=== PATIENT | male | born 1985 | race Caucasian/White ===

== ENCOUNTER 2018-05-07 17:58 | Emergency (ER) | payer OTHER ==
[2018-05-07] MEDS ORDERED: NA CHLORIDE 0.9% 1,000 ML ONE (18:52)
[2018-05-07] MEDS ORDERED: ONDANSETRON 4 MG/2 ML VIAL ONE (18:52)
[2018-05-07] MEDS ORDERED: FAMOTIDINE 20 MG/2 ML VIAL IV ONE (18:53)
[2018-05-07 19:07] LABS: Absolute Lymphocytes (CBC) 2.2 K/uL (0.7-4.9); Absolute Monocytes 0.6 K/uL (0.1-1.3); Absolute Neutrophil 3.4 K/uL (1.8-8.0); Basophils % 0.7 % (0-1.3); Eosinophils % 1.1 % (0-4.4); Hematocrit 46.9 % (39.6-49.0); Lymphocytes % 34.8 % (15.3-44.8); MPV 8.5 fL (7.6-11.3); Monocytes % 9.8 % (3.3-12.3); RBC Red Blood Cell Count 5.39 M/uL (4.33-5.43)
[2018-05-07 19:20] LABS: Albumin 4.3 g/dL (3.4-5.0); Bilirubin Direct 0.2 mg/dL (0-0.2); Bilirubin Total 0.8 mg/dL (0.2-1.0); Potassium 4.2 mmol/L (3.5-5.1); Protein, Total 7.8 g/dL (6.4-8.2)
--- NOTE | 2018-05-07 19:35 | RAD REPORT ---
EXAM DESCRIPTION: US - Abdomen Exam Limited - 05/07/2018 7:04 pm CLINICAL HISTORY: epigastric/RUQ abdomen pain COMPARISON: No comparisons FINDINGS: The gallbladder demonstrates very small stones dependently. No pericholecystic fluid or ga llbladder wall thickening. The common bile duct is normal measuring 6 mm. The liver demonstrates no findings of intrahepatic biliary dilatation. IMPRESSION: Very small gallstones are suspected layering dependently in the gallbladder.
--- NOTE | 2018-05-07 19:46 | ER ---
Nurse's Notes [facility] Name: Christopher Rodríguez Age: 32 yrs Sex: Male : 1985 Arrival Date: 05/07/2018 Time: 18:01 Bed 24 Private MD: Diagnosis: Cholelithiasis Presentation: 05/07 18:26 Presenting complaint: Patient states: "ABDOMINAL PAIN STARTED TWO MONTHS AGO, AND THEN rv CAME BACK TWO WEEKS AGO. WENT TO THE DOCTOR AND WAS PRESCRIBED WITH MEDICINE FOR ACID REFLUX. HE WAS SCHEDULED FOR ULTRASOUND BUT THE PAIN GOT WORSE TODAY AT WORK. COMPLAINS OF NAUSEA. NO VOMITING OR DIARRHEA.". Transition of care: patient was not received from another setting of care. Onset of symptoms was May 07, 2018 at 15:00. Risk Assessment: Do you want to hurt yourself or someone else? Patient reports no desire to harm self or others. Initial Sepsis Screen: Does the patient meet any 2 criteria? No. Patient's initial sepsis screen is negative. Does the patient have a suspected source of infection? No. Patient's initial sepsis screen is negative. Care prior to arrival: None. 18:26 Method Of Arrival: Ambulatory rv 18:26 Acuity: JAJA 3 rv Triage Assessment: 18:30 General: Appears in no apparent distress. comfortable, Behavior is calm, appropriate rv for age. Pain: Complains of pain in abdomen. EENT: No signs and/or symptoms were reported regarding the EENT system. Neuro: Level of Consciousness is awake, alert, obeys commands, Oriented to person, place, time, situation. Cardiovascular: Capillary refill < 3 seconds. Respiratory: Airway is patent. GI: Abdomen is round Reports nausea. : No signs and/or symptoms were reported regarding the genitourinary system. Derm: Skin is intact. Musculoskeletal: No signs and/or symptoms reported regarding the musculoskeletal system. Historical: - Allergies: 18:29 No Known Allergies; rv - Home Meds: 18:29 None [Active]; rv - PMHx: 18:29 None; rv - PSHx: 18:29 None; rv - Immunization history:: Adult Immunizations not immunized. - Social history:: Smoking status: Patient/guardian denies using tobacco. - Ebola Screening: : Patient negative for fever greater than or equal to 101.5 degrees Fahrenheit, and additional compatible Ebola Virus Disease symptoms Patient denies exposure to infectious person Patient denies travel to an Ebola-affected area in the 21 days before illness onset. Screenin:31 Abuse screen: Denies threats or abuse. Denies injuries from another. Nutritional rv screening: No deficits noted. Tuberculosis screening: No symptoms or risk factors identified. Fall Risk None identified. Assessment: 18:32 GI: Bowel sounds present X 4 quads. Abd is soft and non tender. rv 19:46 Reassessment: Patient appears in no apparent distress at this time. Patient and/or rv family updated on plan of care and expected duration. Pain level reassessed. Patient is alert, oriented x 3, equal unlabored respirations, skin warm/dry/pink. Vital Signs: 18:31 BP 137 / 83; Pulse 90; Resp 18; Temp 98.4(O); Pulse Ox 100% on R/A; Weight 120.2 kg (R);rv 19:00 BP 118 / 81 LA; Pulse 78; Resp 18 S; Pulse Ox 97% on R/A; rv 19:30 BP 128 / 92 LA; Pulse 71; Resp 17 S; Pulse Ox 98% on R/A; rv ED Course: 18:01 Patient arrived in ED. mr 18:21 Zachery Queen PA is PHCP. cp 18:21 Jt Hancock MD is Attending Physician. cp 18:29 Triage completed. rv 18:31 Arm band placed on left wrist. rv 18:31 Patient has correct armband on for positive identification. Bed in low position. Call rv light in reach. Side rails up X 1. Pulse ox on. NIBP on. 18:40 Patient taken to ultrasound. imtiaz 18:52 Inserted saline lock: 20 gauge in right antecubital area, using aseptic technique. lt1 18:53 Initial lab(s) drawn, by me, sent to lab. lt1 19:04 US Abdomen Limited In Process Unspecified. EDMS 19:07 Patient moved back from ultrasound. imtiaz 19:45 Hardeep Cuello MD is Referral Physician. cp 19:58 No provider procedures requiring assistance completed. IV discontinued, bleeding rv controlled, No redness/swelling at site. Pressure dressing applied. Administered Medications: 18:45 Drug: Zofran 4 mg Route: IVP; Site: right antecubital; rv 19:44 Follow up: Response: Nausea is decreased rv 18:45 Drug: NS 0.9% 1000 ml Route: IV; Rate: 1 bolus; Site: right antecubital; rv 19:44 Follow up: IV Status: Completed infusion rv 18:50 Drug: Pepcid 20 mg Route: IVP; Site: right antecubital; rv 19:44 Follow up: Response: Pain is decreased rv 19:44 Drug: GI Cocktail without - (Maalox Suspension 30 ml, Lidocaine Liquid 2 % 15 rv ml) Route: PO; 19:59 Follow up: Response: Medication administered at discharge. rv Outcome: 19:45 Discharge ordered by MD. cp 19:58 Discharged to home ambulatory. rv 19:58 Condition: good 19:58 Discharge instructions given to patient, Instructed on discharge instructions, follow up and referral plans. medication usage, Demonstrated understanding of instructions, follow-up care, medications, Prescriptions given X 2. 19:59 Patient left the ED. rv Signatures: Dispatcher [employer] EDOK Kimberly Live Corey, PA PA cp Dupre, Jacques jd Vicente, Ronaldo, RN RN rv Jyoti Becerra lt1
--- NOTE | 2018-05-07 19:46 | EDPHYS ---
Physician Documentation [facility] Name: Christopher Rodríguez Age: 32 yrs Sex: Male : 1985 Arrival Date: 05/07/2018 Time: 18:01 Bed 24 Private MD: ED Physician Jt Hancock HPI: 05/07 18:45 This 32 yrs old Male presents to ER via Ambulatory with complaints of cp Abdominal Pain. 18:45 The patient presents with abdominal pain in the epigastric area, in the right upper cp quadrant. 18:45 Onset: The symptoms/episode began/occurred 2 month(s) ago. The symptoms do not radiate. cp Associated signs and symptoms: Pertinent positives: nausea and vomiting, Pertinent negatives: anorexia, blood in stools, chest pain, constipation, diarrhea, fever, shortness of breath, testicular pain. The symptoms are described as intermittent. Modifying factors: the symptoms are aggravated by food. Severity of pain: in the emergency department the pain is actually worse moderately. Historical: - Allergies: 18:29 No Known Allergies; rv - Home Meds: 18:29 None [Active]; rv - PMHx: 18:29 None; rv - PSHx: 18:29 None; rv - Immunization history:: Adult Immunizations not immunized. - Social history:: Smoking status: Patient/guardian denies using tobacco. - Ebola Screening: : Patient negative for fever greater than or equal to 101.5 degrees Fahrenheit, and additional compatible Ebola Virus Disease symptoms Patient denies exposure to infectious person Patient denies travel to an Ebola-affected area in the 21 days before illness onset. ROS: 18:50 Constitutional: Negative for body aches, chills, fever, poor PO intake. cp 18:50 Eyes: Negative for injury, pain, redness, and discharge. cp 18:50 ENT: Negative for drainage from ear(s), ear pain, sore throat, difficulty swallowing, difficulty handling secretions. 18:50 Cardiovascular: Negative for chest pain, edema, palpitations. 18:50 Respiratory: Negative for cough, shortness of breath, wheezing. 18:50 Abdomen/GI: Positive for abdominal pain, nausea and vomiting, Negative for diarrhea, constipation, anorexia, black/tarry stool, rectal bleeding. 18:50 Back: Negative for radiated pain. 18:50 : Negative for urinary symptoms, testicular pain 18:50 Skin: Negative for cellulitis, rash. 18:50 Neuro: Negative for altered mental status, headache, weakness. 18:50 All other systems are negative. Exam: 18:55 Constitutional: The patient appears in no acute distress, alert, awake, non-toxic, well cp developed, well nourished. 18:55 Head/Face: Normocephalic, atraumatic. cp 18:55 Eyes: Periorbital structures: appear normal, Conjunctiva: normal, no exudate, no injection, Sclera: no appreciated abnormality, Lids and lashes: appear normal, bilaterally. 18:55 ENT: External ear(s): are unremarkable, Ear canal(s): are normal, clear, TM's: bulging, is not appreciated, bilaterally, dullness, bilaterally, erythema, is not appreciated, bilaterally, Nose: is normal, Mouth: Lips: moist, Oral mucosa: pink and intact, moist, Posterior pharynx: is normal, airway is patent, no erythema, no exudate. 18:55 Neck: ROM/movement: is normal, is supple, without pain, no range of motions limitations, no nuchal rigidity. 18:55 Chest/axilla: Inspection: normal, Palpation: is normal, no crepitus, no tenderness. 18:55 Cardiovascular: Rate: normal, Rhythm: regular. 18:55 Respiratory: the patient does not display signs of respiratory distress, Respirations: normal, no use of accessory muscles, no retractions, no splinting, no tachypnea, labored breathing, is not present, Breath sounds: are clear throughout, no decreased breath sounds, no stridor, no wheezing. 18:55 Abdomen/GI: Inspection: abdomen appears normal, Bowel sounds: active, all quadrants, Palpation: soft, in all quadrants, mild abdominal tenderness, in the epigastric area and right upper quadrant, rebound tenderness, is not appreciated, involuntary guarding, is not appreciated. 18:55 Back: pain, is absent, ROM is normal. 18:55 Skin: cellulitis, is not appreciated, no rash present. Vital Signs: 18:31 BP 137 / 83; Pulse 90; Resp 18; Temp 98.4(O); Pulse Ox 100% on R/A; Weight 120.2 kg (R);rv 19:00 BP 118 / 81 LA; Pulse 78; Resp 18 S; Pulse Ox 97% on R/A; rv 19:30 BP 128 / 92 LA; Pulse 71; Resp 17 S; Pulse Ox 98% on R/A; rv MDM: 18:21 Patient medically screened. cp 19:00 Differential diagnosis: appendicitis, bowel obstruction, cholecystitis, Cholelithiasis, cp diverticulitis, gastritis, gastroesophageal reflux disease, GI Bleed, non-specific abd pain, pancreatitis, Peptic Ulcer Disease, Perf. Duodenal Ulcer, Perf. Gastric Ulcer. 19:45 Data reviewed: vital signs, nurses notes, lab test result(s), radiologic studies, cp ultrasound. 19:45 Counseling: I had a detailed discussion with the patient and/or guardian regarding: the cp historical points, exam findings, and any diagnostic results supporting the discharge/admit diagnosis, lab results, radiology results, the need for outpatient follow up, a general surgeon, to return to the emergency department if symptoms worsen or persist or if there are any questions or concerns that arise at home. Response to treatment: the patient's symptoms have markedly improved after treatment, and as a result, I will discharge patient. ED course: VSS. Discussed results of labs and US showing gallstones. Pain improved, will discharge to home and refer to general surgery. 05/07 18:35 Order name: Basic Metabolic Panel; Complete Time: 19:27 cp 03/04 19:27 Interpretation: Normal except: GFR 87. cp /04 18:35 Order name: CBC with Diff; Complete Time: 19:27 cp /04 18:35 Order name: Creatinine for Radiology; Complete Time: 19:27 cp /04 18:35 Order name: Hepatic Function; Complete Time: 19:27 cp /04 18:35 Order name: Lipase; Complete Time: 19:27 cp /04 18:35 Order name: US Abdomen Limited; Complete Time: 19:37 cp /04 18:35 Order name: IV Saline Lock; Complete Time: 18:53 cp 03/04 18:35 Order name: Labs collected and sent; Complete Time: 18:53 cp Administered Medications: 18:45 Drug: Zofran 4 mg Route: IVP; Site: right antecubital; rv 19:44 Follow up: Response: Nausea is decreased rv 18:45 Drug: NS 0.9% 1000 ml Route: IV; Rate: 1 bolus; Site: right antecubital; rv 19:44 Follow up: IV Status: Completed infusion rv 18:50 Drug: Pepcid 20 mg Route: IVP; Site: right antecubital; rv 19:44 Follow up: Response: Pain is decreased rv 19:44 Drug: GI Cocktail without - (Maalox Suspension 30 ml, Lidocaine Liquid 2 % 15 rv ml) Route: PO; 19:59 Follow up: Response: Medication administered at discharge. rv Disposition: 05/07/18 19:45 Discharged to Home. Impression: Cholelithiasis. - Condition is Stable. - Discharge Instructions: Biliary Colic, Adult, Cholelithiasis. - Prescriptions for Bentyl 20 mg Oral Tablet - take 2 tablet by ORAL route every 6 hours As needed; 40 tablet. Zofran 4 mg Oral Tablet - take 1 tablet by ORAL route every 12 hours As needed; 20 tablet. - Medication Reconciliation Form, Thank You Letter, Antibiotic Education, Prescription Opioid Use, Work release form, Family Work Release form. - Follow up: Hardeep Cuello MD; When: 1 - 2 days; Reason: Recheck today's complaints. - Problem is new. - Symptoms have improved. Signatures: Dispatcher [employer] EDMS Zachery Queen PA PA cp Gerardo Glover RN RN rv Corrections: (The following items were deleted from the chart) 19:59 19:45 05/07/2018 19:45 Discharged to Home. Impression: Cholelithiasis. Condition is rv Stable. Forms are Medication Reconciliation Form, Thank You Letter, Antibiotic Education, Prescription Opioid Use. Follow up: Hardeep Cuello; When: 1 - 2 days; Reason: Recheck today's complaints. Problem is new. Symptoms have improved. cp
[2018-05-07] MEDS ORDERED: LIDOCAINE VISCOUS 2% SOLN 15 ML UDC ONE (19:49)
[2018-05-07] MEDS ORDERED: MAGNE/ALUM HYDROXD 30 ML UCUP ONE (19:49)
== END 2018-05-07 19:59 | disposition home or self-care (01) ==
LOC: ER 17:58
DX: K80.20 Calculus of gallbladder without cholecystitis without obstruction (principal)
CPT/HCPCS: 36415; 76705; 80048; 80076; 83690; 85025; 96361; 96374; 96375; 99284; J2405; J7030

== ENCOUNTER 2018-05-11 20:19 | Day surgery (SDC) | payer OTHER ==
[2018-05-11] MEDS ORDERED: ONDANSETRON 4 MG/2 ML VIAL IV PRN (21:57)
[2018-05-11] MEDS ORDERED: MORPHINE 2 MG/ML SYR IV PRN (21:57)
[2018-05-11] MEDS ORDERED: NA CHLORIDE 0.9% 1,000 ML IV SCH (22:00)
[2018-05-11] MEDS ORDERED: PIPER/TAZO/NS 3.375gm 6.750 GM/200 ML BAG ONE (23:38)
[2018-05-11] MEDS: PIPER/TAZO/NS 3.375gm 3.375 GM/100 ML BAG IVPB SCH (23:59)
[2018-05-12] MEDS: PIPER/TAZO/NS 3.375gm 3.375 GM/100 ML BAG IVPB SCH (05:21)
[2018-05-12] MEDS ORDERED: PIPER/TAZO/NS 3.375gm 3.375 GM/100 ML BAG IVPB SCH ×2 (09:00→15:00)
[2018-05-12] MEDS ORDERED: Ringers Lactate 1,000 ML IV ONE (09:45)
[2018-05-12] MEDS: BUPIVACAINE 0.5% PF 10 ML VIAL ONE ×2 (09:45→10:10)
[2018-05-12] MEDS ORDERED: FENTANYL CITR 100 MCG/2 ML ONE (09:50)
[2018-05-12] MEDS ORDERED: PROPOFOL 200 MG/20 ML VIAL IV ONE (09:50)
[2018-05-12] MEDS ORDERED: ROCURONIUM 50 MG/5 ML VIAL IV ONE (09:51)
[2018-05-12] MEDS ORDERED: LIDOCAINE 2% MPF 5 ML VIAL ONE (09:51)
[2018-05-12] MEDS ORDERED: DEXAMETHASONE 4 MG/ML VIAL ONE (10:31)
[2018-05-12] MEDS ORDERED: ONDANSETRON 4 MG/2 ML VIAL ONE ×2 (10:31→11:55)
[2018-05-12] MEDS ORDERED: KETOROLAC 30 MG/ML INJ ONE (10:31)
[2018-05-12] MEDS ORDERED: GLYCOPYRROLATE 0.2 MG/ML SYR ONE ×2 (11:06→11:22)
[2018-05-12] MEDS ORDERED: NEOSTIGMINE 1 MG/ML -10 ML VIAL ONE (11:06)
--- NOTE | 2018-05-12 11:19 | P.BOP ---
Preoperative diagnosis: symptomatic cholelithiasis, acute cholecystitis Postoperative diagnosis: same Primary procedure: Laparoscopic cholecystectomy Estimated blood loss: <10cc Specimen: gb Findings: as above Anesthesia: General Complications: None Transferred to: Recovery Room Condition: Good
[2018-05-12] MEDS ORDERED: HYDROCODONE/APAP 7.5/325 MG TAB PO PRN (11:40)
[2018-05-12] MEDS: HYDROMORPHONE HCL 1 MG/ML INJ ONE ×2 (11:45→11:50)
--- NOTE | 2018-05-15 02:29 | OP ---
Date of Procedure: 05/12/2018 Surgeon: Hardeep Cuello MD Preoperative Diagnoses: Symptomatic cholelithiasis, acute cholecystitis. Postoperative Diagnoses: Symptomatic cholelithiasis, acute cholecystitis. Procedure: Laparoscopic cholecystectomy. Anesthesia: General plus local. Indications: This is the case of a male, who comes to us with above diagnoses. Fully explained the benefits, alternatives, and risks of laparoscopic, possible open cholecystectomy, which include but a re not limited to, infection, bleeding, damage to adjacent structures, anesthesia complication, kael docholithiasis, bile leak, pancreatitis, ID, and even . He also understands this may not reliev e any symptoms, he might need more than one surgical intervention. He understood, signed a consent. Description Of Procedure: The patient was brought to the operating room, placed in supine position. Anesthesia was done without complication. Abdominal area was prepped and draped in a sterile fashio n. Marcaine 0.5% was injected for local anesthetic, followed by sharp incision of the skin in the in fraumbilical region. Incision was carried down to fascia, which was opened under direct vision. Per itoneum was encountered, opened under direct vision. Vicryl #1 placed inside the fascia. Tasha tro car was carefully introduced. No bleeding was obtained. I placed 3 more trocars, 5 mm each one of t hem, in the right upper quadrant under direct visualization. This allowed me to put a grasper in the fundus of the gallbladder, another grasper in the infundibulum, retracted the gallbladder in the inf erolateral fashion exposing the triangle of Calot, obtaining critical view of safety. Cystic duct an d cystic artery were clearly isolated free circumferentially and a connection between those and the g allbladder was clearly identified. I proceeded to ligate those by using at least 3 clips proximal, 1 clip distal, ligation in middle. Same was done with the cystic artery. No bile leak. No bleeding. The gallbladder was removed from liver using Bovie cauterizer and removed from abdominal cavity usi ng EndoCatch through the umbilical incision. The area was inspected once again. Clips were intact. Gallbladder fossa was intact. At that moment, I proceeded to remove the trocars under direct vision , deflated pneumoperitoneum, closed the fascia with #1 Vicryl, irrigated the subcutaneous tissue, mendez sed that with 3-0 chromic and skin in a subcuticular fashion with 3-0 chromic and Steri-Strips on top . Sponge count and instrument counts were correct. The patient tolerated the procedure well. [facility]. MAUDE/ADELINE Voice ID: [id number] Report ID: [id number]
== END 2018-05-12 16:20 | disposition home or self-care (01) ==
LOC: DS 20:19 → INTOOBSV 20:19 → UNDOADMOB 20:19 → 2ND 20:19 → UNDODISIN 05-12 16:20 → DS 05-12 16:20 → EDSTATUS 05-14 10:20
PROVIDERS: ATTEND Surgery
PROC: 0FT44ZZ Resection of Gallbladder, Percutaneous Endoscopic Approach (ICD-10-PCS; principal; 2018-05-11)
DX: K80.12 Calculus of gallbladder with acute and chronic cholecystitis without obstruction (principal)
CPT/HCPCS: 88304; J1170; J2405; J2543; J2704; J2710; J3010; J7030